=== PATIENT | female | born 1990 | race Caucasian/White ===

== ENCOUNTER 2023-03-02 19:23 | Emergency (ER) | payer OTHER ==
[~2023-03-02] VITALS: Ht 167.6 cm; Wt 77.1 kg
--- NOTE | 2023-03-02 19:32 | NUR ---
Dr Pope at bedside, MSE in progress
[2023-03-02] MEDS ORDERED: KETOROLAC TROMETHAMINE 15 MG INJ ONE (19:44)
[2023-03-02] MEDS ORDERED: ONDANSETRON 4 MG/2 ML VIAL ONE (19:44)
[2023-03-02] MEDS ORDERED: ONDANSETRON 4 MG/2 ML VIAL IV ONE (19:45)
[2023-03-02] MEDS ORDERED: IV NORMAL SALINE 1000 ML BAG IV ONE (19:45)
[2023-03-02] MEDS ORDERED: KETOROLAC TROMETHAMINE 15 MG INJ IVP ONE (19:45)
[2023-03-02 20:09] LABS: MEAN CORPUSCULAR HEMOGLOBIN 32.2 uug (24.7-32.8); MEAN CORPUSCULAR VOLUME 96.9 fL (75.5-95.3)
[2023-03-02] MEDS ORDERED: IOHEXOL 300MG/ML 100 ML INFUS..BTL ONE (20:11)
[2023-03-02] MEDS ORDERED: SWABABLE VALVE TRANSFER SET EA MC ONE (20:12)
[2023-03-02] MEDS ORDERED: IV NORMAL SALINE 250 ML IV ONE (20:12)
[2023-03-02 20:13] LABS: *BLOOD, URINE NEGATIVE (NEGATIVE); *CLARITY,URINE SLIGHTLY CLOUDY (CLEAR); *COLOR,URINE RED (YELLOW); *KETONES,URINE 1+ (NEGATIVE); LEUKOCYTE ESTERASE ,URINE 3+ (NEGATIVE); NITRITE, URINE POSITIVE (NEGATIVE)
[2023-03-02 20:13] LABS: CREATININE 0.7 mg/dL (0.6-1.3); POTASSIUM 3.9 mmol/L (3.5-5.1)
[2023-03-02 20:16] LABS: UGLUCOSE 1+ (NEGATIVE)
[2023-03-02 20:17] LABS: *BILIRUBIN,URIN 1+ (NEGATIVE)
[2023-03-02 20:19] LABS: BILIRUBIN,TOTAL 0.3 mg/dL (0.2-1.0); TOTAL PROTEIN, SERUM 8.5 g/dL (6.4-8.2)
[2023-03-02 20:25] LABS: RBC,URINE 0-3 /HPF (0-3); WBC,URINE NONE SEEN /HPF (0-3)
[2023-03-02 20:26] LABS: BACTERIA,URINE FEW /HPF (NONE SEEN); SQUAMOUS EPITHELIAL CELL,UR MODERATE /HPF (NONE SEEN)
[2023-03-02 20:30] LABS: *AMPHETAMINE, URINE POSITIVE (NEGATIVE); *CANNABINOID, URINE POSITIVE (NEGATIVE); *COCCAINE, URINE POSITIVE (NEGATIVE); *PHENCYCLIDINE SCREEN,URINE NEGATIVE (NEGATIVE)
[2023-03-02 20:32] LABS: *URINE HCG, QUAL NEGATIVE (NEGATIVE)
[2023-03-02 20:39] LABS: HEMATOCRIT 40.9 % (31.2-41.9)
[2023-03-02 20:41] LABS: PLATELET COUNT (AUTO) 387 K/uL (179-408)
--- NOTE | 2023-03-02 20:42 | NUR ---
Patient taken to CT via gurney by tori Randall
[2023-03-02 20:48] LABS: EOSINOPHILS % (MANUAL) 2 % (0-8); LYMPHOCYTES % (MANUAL) 37 % (20-40); MONOCYTES % (MANUAL) 3 % (2-10); NEUTROPHILS % (MANUAL) 58 % (42-75)
--- NOTE | 2023-03-02 20:50 | NUR ---
Patient is back from CT
--- NOTE | 2023-03-02 22:49 | NUR ---
Dwayne avendano in ED - 03/02/23 at 2249 by KAYLA US lala Crain at [facility] MSE in progress
--- NOTE | 2023-03-02 22:49 | NUR ---
US tech rBeann at bedside US in progress
[2023-03-03] MEDS ORDERED: IV NORMAL SALINE 500 ML BAG IV ONE
[2023-03-03] MEDS ORDERED: MAGNESIUM CITRATE 296 ML BOTTLE PO ONE
[2023-03-03] MEDS ORDERED: KETOROLAC TROMETHAMINE 15 MG INJ IVP ONE
[2023-03-03] MEDS ORDERED: KETOROLAC TROMETHAMINE 15 MG INJ ONE (00:12)
[2023-03-03] MEDS ORDERED: FLEET ENEMA 133 ML BOTTLE RC ONE ×2 (00:12)
[2023-03-03] MEDS ORDERED: LACTULOSE 20 G/30 ML LIQUID UDC PO ONE (00:15)
[2023-03-03] MEDS ORDERED: LACTULOSE 20 G/30 ML LIQUID UDC ONE (00:15)
--- NOTE | 2023-03-03 02:29 | NUR ---
Patient discharged to home in stable condition. Written and verbal after care instructions given. Patient verbalizes understanding of instructions. Stressed follow up or return to ER for worsening s/s. Patient is a/ox4, NAD noted, patient ambulated with steady gait
[2023-03-03 02:33] VITALS: BP 125/71
== END 2023-03-03 02:33 | disposition home or self-care (01) ==
LOC: ER 19:23
DX: R10.9 Unspecified abdominal pain (principal)
CPT/HCPCS: 99285; 74177; 96374; 76856; 96361 ×2; 96375 ×2; 80053; 84703; 83690; 85025; 36415; 80307; 81001; 85007; J1885 ×2; J2405; Q9967; J7040 ×3; 70030-TC; A4663